=== PATIENT | female | born 1955 | race Caucasian/White ===

== ENCOUNTER → 2017-08-15 | Outpatient (CLI) | payer BC ==
[~2017-08-15] MED LIST: ACYC800T PO; DICY10CA26 PO; HYDR1TAB PO; MAG SALT; PRD20T PO
--- NOTE | 2017-08-16 10:09 | Diagnostic Imaging Report ---
Bilateral screening mammogram 2D views with tomosynthesis The current study was also evaluated with a Computer Aided Detection (CAD) system. Indication: Screening. No current complaints stated on the questionnaire. COMPARISON: 06/08/2016. Findings: The breasts are composed of dense parenchyma which may decrease mammographic sensitivity. There is no mass, architectural distortion or suspicious is of calcification. Allowing for technique and positional differences, no suspicious change is seen. IMPRESSION: Dense breasts with no definite change. ACR BI-RADS Category 2: Benign findings. Result letter will be mailed to the patient. Note: At least 10% of breast cancer is not imaged by mammography. Dictated by: Dictated on workstation # [id number]
== END ==
LOC: RAD 12:53
PROVIDERS: ATTEND Internal Medicine
DX: Z12.31 Encounter for screening mammogram for malignant neoplasm of breast (principal)
CPT/HCPCS: 77067

== ENCOUNTER → 2018-09-12 | Outpatient (CLI) | payer BC ==
--- NOTE | 2018-09-15 08:23 | Diagnostic Imaging Report ---
Indication: Routine screening. Comparison is made with prior mammogram from 08/15/2017 and 06/08/2016. 2-D and 3-D bilateral screening mammography was performed with CAD. Both breasts remain heterogeneously dense, limiting the sensitivity of mammography. The parenchymal pattern is stable. No mass or malignant- appearing microcalcifications are seen. Axillae are unremarkable. Impression: BI-RADS category 1 No mammographic features suspicious for malignancy are identified. ACR BI-RADS Category 1: Negative. Result letter will be mailed to the patient. Note: At least 10% of breast cancer is not imaged by mammography. Dictated by: Dictated on workstation # [id number]
== END ==
LOC: RAD 15:41
PROVIDERS: ATTEND Internal Medicine
DX: Z12.31 Encounter for screening mammogram for malignant neoplasm of breast (principal)
CPT/HCPCS: 77067

== ENCOUNTER 2018-10-28 05:46 | Outpatient (CLI) | payer BC ==
[~2018-10-28] VITALS: Ht 162.6 cm; Wt 79.4 kg
[2018-10-28] MEDS ORDERED: CITA10TA7 PO (13:19)
[2018-10-28] MEDS ORDERED: AMIT10TA6 PO (13:19)
[2018-10-28] MEDS ORDERED: FAMO-119 PO (13:19)
[2018-10-28] MEDS ORDERED: RIZA10TA37 PO (13:19)
== END 2018-10-28 13:53 | disposition home or self-care (01) ==
LOC: PREOP 05:46
PROVIDERS: ATTEND Podiatrist Foot Surgery
DX: Z01.818 Encounter for other preprocedural examination (principal)

== ENCOUNTER 2018-11-04 06:07 | Day surgery (SDC) | payer BC ==
[~2018-11-04] VITALS: Ht 162.6 cm; Wt 79.4 kg
[~2018-11-04 06:07] MED LIST changes: +AMIT10TA6 PO; +CITA10TA7 PO; +FAMO-119 PO; +RIZA10TA37 PO
[2018-11-04 06:35] VITALS: BP 129/74
[2018-11-04] MEDS ORDERED: LACTATED RINGERS 1,000 ML IV PRN (06:42)
[2018-11-04] MEDS ORDERED: ceFAZolin INJECTION 1,000 MG in WATER (STERILE) FOR INJECTION 10 ML IV ONE (06:45)
[2018-11-04] MEDS ORDERED: CATHETER FLUSH 10 ML SYR IV PRN (07:00)
[2018-11-04] MEDS ORDERED: MIDAZOLAM 2 MG/2 ML (VERSED) VIAL ONE (07:01)
[2018-11-04] MEDS ORDERED: PROPOFOL INJECTION 50 ML IV ONE (07:01)
[2018-11-04] MEDS ORDERED: BUP/EPI 0.5% 1:200,000 (SENSORCAINE) 30 ML VIAL ONE (07:15)
[2018-11-04] MEDS ORDERED: MEPIVACAINE (CARBOCAINE) 2% 50 ML VIAL ONE (07:16)
--- NOTE | 2018-11-04 07:22 | Progress Note-Pre Operative ---
Pre-Operative Progress Note H&P Reviewed The H&P was reviewed, patient examined and no changes noted. Date Seen by Provider: Nov 04, 2018 Time Seen by Provider: 07:25 Date H&P Reviewed: Nov 04, 2018 Time H&P Reviewed: 07:26 Pre-Operative Diagnosis: joint mouse right first MPJ USMAN HURST DPM Nov 04, 2018 07:22
[2018-11-04] MEDS ORDERED: LACTATED RINGERS 1,000 ML IV SCH (07:33)
[2018-11-04] MEDS ORDERED: TRAM50TA2 PO (08:32)
--- NOTE | 2018-11-04 08:32 | Progress Note-Post Operative ---
Post-Operative Progess Note Surgeon (s)/Forge Tender (s) Surgeon USMAN HURST DPM Forge Tender: NONE Pre-Operative Diagnosis joint mouse right first MPJ Post-Operative Diagnosis SAME Procedure & Operative Findings Date of Procedure 11/04/18 Procedure Performed/Findings EXCISION OF JOINT MOUSE RIGHT FITRST MPJ Anesthesia Type REGIONAL WITH ASSIST Estimated Blood Loss Estimated blood loss (mL): MIN Specimens/Packing Specimens Removed JOINT MOUSE RIGHT FIRST MPJ Packing: NONE USMAN HURST DPM Nov 04, 2018 08:32
[2018-11-04 09:00] VITALS: BP 127/89
[2018-11-04 09:30] VITALS: BP 129/69
--- NOTE | 2018-11-04 09:58 | Diagnostic Imaging Report ---
INDICATION: Postop right foot. FINDINGS: The alignment is normal. There is no fracture or dislocation. There are mild degenerative changes at first metatarsophalangeal joint. Soft tissues are unremarkable. IMPRESSION: Mild degenerative changes as described otherwise unremarkable. Dictated by: Dictated on workstation # [id number]
--- NOTE | 2018-11-04 12:16 | Anesthesia-General Post-Op ---
MAC Patient Condition Mental Status/LOC: Same as Preop Cardiovascular: Satisfactory Nausea/Vomiting: Absent Respiratory: Satisfactory Pain: Controlled Complications: Absent Post Op Complications Complications None Follow Up Care/Instructions Patient Instructions None needed. Anesthesiology Discharge Order Discharge Order Patient was seen after the procedure and she was doing well, no complaints, stable vital signs, no apparent adverse anesthesia problems. ASHLEE GARNER DO Nov 04, 2018 12:16
--- NOTE | 2018-11-04 19:59 | OPERATIVE REPORT ---
DATE OF SERVICE: 11/04/2018 PREOPERATIVE DIAGNOSIS: Joint mouse, right first MP. POSTOPERATIVE DIAGNOSIS: Joint mouse, right first MP. PROCEDURE: Excision of joint mouse first MPJ right foot. DESCRIPTION OF OPERATION: With the patient in supine position, having been affected by regional anesthetic utilizing 6 mL of 50:50 mixture of 0.5% Marcaine plain and 1% Carbocaine plain with anesthesia assist. Sterile prep and drape were performed and a Yasir bandage was applied above the level of the right ankle. A 5 cm curvilinear incision was made over the dorsal aspect of the first metatarsal medial to the EHL tendon deepened with sharp and blunt dissection. Vital structures identified and retracted. Dissection was carried deep to the first MPJ. This was incised in a linear fashion with approximately 3 cm linear incision of the first MP. There was a well-defined dorsal joint mouse that was expressed from the joint. The area was inspected for other anatomical abnormalities. There was small exostosis at the dorsum of the first metatarsal head at the proximal phalangeal base. These were resected with use of a rongeur and remaining bone surface rasped smooth. The area was flushed with copious amounts of saline, inspected for any other anatomical abnormalities, none were noted. Capsular closure was accomplished via continuous lock suture of 3-0 Vicryl, superficial fascia closed with continuous suture of 4-0 Vicryl and skin reapproximated with Steri-Strips and Mastisol. Tourniquet was released. Blood flow returned to digits was within normal limits. Adaptic and a sterile corrective compressive wet to dry Betadine dressing were applied, carried above the level of the right ankle. The patient tolerated the procedure well with minimal blood loss, left the OR to PAR in apparent good condition. She was given Rx for tramadol 50 mg t.i.d. for seven days p.r.n. foot pain and is to be seen in the office in 2 weeks for appropriate followup care. Job ID: [id number] DocumentID: [id number] Dictated Date: 11/04/2018 10:50:04 [employer] Estate Acquisition Analyst Date: 11/04/2018 19:58:46 Dictated By: USMAN HURST DPM
== END 2018-11-04 09:35 | disposition home or self-care (01) ==
LOC: SDC 06:07
PROVIDERS: ATTEND Podiatrist Foot Surgery
DX: M24.074 Loose body in right toe joint(s) (principal); M89.9 Disorder of bone, unspecified; K21.9 Gastro-esophageal reflux disease without esophagitis; F32.9 Major depressive disorder, single episode, unspecified; Z79.899 Other long term (current) drug therapy
CPT/HCPCS: 73620; 87081

== ENCOUNTER → 2020-03-18 | Outpatient (CLI) | payer BC ==
[~2020-03-18] MED LIST changes: +TRM50T PO
--- NOTE | 2020-03-18 10:53 | Diagnostic Imaging Report ---
INDICATION: Routine screening. COMPARISON is made with prior mammograms of 09/12/2018 and 08/15/2017. 2-D and 3-D bilateral screening mammography was performed with CAD. Both breasts are heterogeneously dense, limiting the sensitivity of mammography. The parenchymal pattern is stable. No mass or malignant appearing microcalcifications are identified. Axillae are unremarkable. IMPRESSION: BI-RADS Category 1. No mammographic features suspicious for malignancy are identified. ACR BI-RADS Category 1: Negative. Result letter will be mailed to the patient. Note: At least 10% of breast cancer is not imaged by mammography. Dictated by: Dictated on workstation # [id number]
== END ==
LOC: RAD 07:31
PROVIDERS: ATTEND Internal Medicine
DX: Z12.31 Encounter for screening mammogram for malignant neoplasm of breast (principal)
CPT/HCPCS: 77063; 77067

== ENCOUNTER → 2020-06-16 | Outpatient (CLI) | payer BC | LOC: LAB 09:42 | PROVIDERS: ATTEND Internal Medicine | DX: R19.7 Diarrhea, unspecified (principal) | CPT/HCPCS: 82274; 87015; 87045; 87046; 87328; 87329; 87899 ==

== ENCOUNTER → 2021-04-21 | Outpatient (CLI) | payer BC ==
[~2021-04-21] MED LIST changes: -AMIT10TA6 PO; +AMT10T PO
--- NOTE | 2021-04-21 11:17 | Diagnostic Imaging Report ---
INDICATION: Routine screening. COMPARISON is made with prior mammograms of 03/18/2020 and 09/12/2018. 2-D and 3-D bilateral screening mammography was performed with CAD. Both breasts are heterogeneously dense, limiting the sensitivity of mammography. The parenchymal pattern is stable. No mass or malignant-appearing microcalcifications are seen. Axillae are unremarkable. IMPRESSION: BI-RADS Category 1 No mammographic features suspicious for malignancy are identified. ACR BI-RADS Category 1: Negative. Result letter will be mailed to the patient. Note: At least 10% of breast cancer is not imaged by mammography. Dictated by: Dictated on workstation # [id number]
== END ==
LOC: RAD 09:00
PROVIDERS: ATTEND Internal Medicine
DX: Z12.31 Encounter for screening mammogram for malignant neoplasm of breast (principal)
CPT/HCPCS: 77063; 77067

== ENCOUNTER → 2022-06-13 | Outpatient (CLI) | payer BC, OTHER ==
[~2022-06-13] MED LIST changes: -CITA10TA7 PO; +CITA10TA9 PO
--- NOTE | 2022-06-13 11:52 | Diagnostic Imaging Report ---
Indication: Routine screening. Comparison is made with prior mammogram from 04/21/2021 and 03/18/2020. 2-D and 3-D bilateral screening mammography was performed with CAD. CAD is utilized. The current study was also evaluated with a Computer Aided Detection (CAD) system. Both breasts are heterogeneously dense, limiting the sensitivity of mammography. The parenchymal pattern is stable. No mass or malignant-appearing microcalcifications are seen. Axillae are unremarkable. IMPRESSION: BI-RADS Category 1 No mammographic features suspicious for malignancy are identified. ACR BI-RADS Category 1: Negative. Result letter will be mailed to the patient. Note: At least 10% of breast cancer is not imaged by mammography. Dictated by: Dictated on workstation # [id number]
== END ==
LOC: RAD 09:58
PROVIDERS: ATTEND Internal Medicine
DX: Z12.31 Encounter for screening mammogram for malignant neoplasm of breast (principal)
CPT/HCPCS: 77063; 77067

== ENCOUNTER → 2023-06-25 | Outpatient (CLI) | payer MEDICARE, OTHER ==
--- NOTE | 2023-06-25 15:59 | Diagnostic Imaging Report ---
Indication: Routine screening Comparison is made with prior mammograms 06/13/2022 and 04/21/2021. 2-D and 3-D bilateral screening mammography was performed with CAD. Both breasts are heterogeneously dense, limiting the sensitivity of mammography. The parenchymal pattern is stable. No mass or malignant-appearing microcalcifications are seen. Axillae are unremarkable. IMPRESSION: BI-RADS Category 1 No mammographic features suspicious for malignancy are identified. ACR BI-RADS Category 1: Negative. Result letter will be mailed to the patient. Note: At least 10% of breast cancer is not imaged by mammography. Dictated by: Dictated on workstation # [id number]
== END ==
LOC: RAD 13:56
PROVIDERS: ATTEND Internal Medicine
DX: Z12.31 Encounter for screening mammogram for malignant neoplasm of breast (principal)
CPT/HCPCS: 77063; 77067